=== PATIENT | male | born 1985 | race Caucasian/White ===

== ENCOUNTER 2019-08-07 12:08 | Emergency (ER) | payer MEDICAID, SELFPAY ==
[2019-08-07 12:09] VITALS: BP 131/78; PULSE 74; RESP 51; TEMP 36.6; O2SAT 100; BMI 20.2
[2019-08-07 13:09] VITALS: BP 121/78; PULSE 91; RESP 16; O2SAT 99
--- NOTE | 2019-08-07 13:45 | EKG12_ITS ---
Test Reason : CP Blood Pressure : / mmHG Vent. Rate : 061 BPM Atrial Rate : 061 BPM P-R Int : 122 ms QRS Dur : 080 ms QT Int : 388 ms P-R-T Axes : 062 067 053 degrees QTc Int : 390 ms Normal sinus rhythm Voltage criteria for left ventricular hypertrophy Septal OK, age undetermined, cannnot be excluded Abnormal ECG Confirmed by SUSAN LOPEZ, TERRELL ([id number]), rewrite editor JOESPH URBINA ([id number]) on 08/10/2019 8:33:26 AM Referred By: RISHABH/LELA Confirmed By:TERRELL DAVIS MD
[2019-08-07] MEDS: Ibuprofen 600 MG Tablet PO (13:55)
--- NOTE | 2019-08-07 14:05 | RAD_ITS ---
STUDY: X-RAY CHEST REASON FOR EXAM: Male, 33 years old. Chest pain TECHNIQUE: PA and lateral views of the chest. COMPARISON: None. FINDINGS: The lungs are clear and expanded. There is no demonstrated pleural abnormality. Normal size heart. Normal mediastinum and shane. Normal visualized pulmonary arteries. Normal visualized aortic arch and descending thoracic aorta. Normal visualized thoracic spine. Normal visualized ribs, clavicles, and shoulders. There is no demonstrated abnormality of the visualized soft tissue structures of the upper abdomen. RAD/Chest PA and Lateral IMPRESSION: Normal x-ray examination of the chest. Electronically Signed: Pool Leos MD at 14:20 EDT Tel , Service support ,
[2019-08-07 14:06] LABS: Absolute Neutrophil Count 8.3 X10^3/uL (2.0-7.7); Basophil# 0.03 X10^3/uL; Basophil% 0.3 % (0-1); Eosinophils% 0.9 % (0-5); Hematocrit 48.3 % (40-54); Hemoglobin 16.3 g/dL (13.0-16.5); Mean Corp Hgb Conc 33.7 g/dL (32-36); Mean Corpuscular Hgb 30.8 pg (27.0-32.0); Mean Corpuscular Volume 91.1 fL (80-94); Mean Platelet Vol. 9.4 fl (6.2-12.0); Monocyte# 0.59 X10^3/uL; Monocyte% 5.5 % (0-10); NRBC Flagged by Analyzer 0 % (0-5); Neutrophil # 8.25 X10^3/uL (2.7-7.7); Neutrophil % 77.6 % (47-70); Platelet Count 267 K/mm3 (150-450); RBC Distribution Width CV 12.3 % (11.6-14.6); RBC Distribution Width SD 40.7 fl (35.1-43.9); White Blood Count 10.6 K/mm3 (4.4-11.0)
[2019-08-07 14:23] LABS: Anion Gap 5 (5-15); BUN 10 mg/dL (7-18); BUN/Creat Ratio 10.8 RATIO (10-20); Chloride 104 mmol/L (98-107); Creatinine, Serum 0.93 mg/dL (0.70-1.30); EST Glomerular Filtration Rate 100 mL/min (>60); Est Glom Filt Rate - Afr Amer 121 mL/min (>60); Estimated Creatinine Clearance 106.08 ml/min; Glucose 95 mg/dL (74-106); Potassium 4.1 mmol/L (3.5-5.1); Sodium Level 139 mmol/L (136-145)
--- NOTE | 2019-08-07 14:37 | ED.DCSUM_ITS ---
History of Present Illness Chief Complaint: Chest Pain Informant: Patient Onset: Days Context: Gradual Onset Timing: Intermittent Current Severity: Mild Maximum Severity: Severe Narrative: Patient is a 33-year-old male with no known medical history presenting with multiple complaints including left jaw pain, left neck pain as well as chest pain. Patient states he has had intermittent jaw and neck pain for the past few months but is been worse over the past few days. He states that when he sleeps he grinds his teeth and he feels that his jaw pops a lot. He does have an appointment to see a dentist in 1 week. He also notes that the left side of his neck hurts especially when he is working. 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 Today patient had an episode of intermittent left-sided chest pain/tingling. He denies any associated shortness of breath, sweating or nausea. The patient states that he sometimes gets num bness in his hand over the left third through fifth fingers. Seems to be more so when he is sitting in an awkward position or raises up his arm. He currently does not have the symptom. His significant other convinced him to come into be evaluated further. He admits to smoking cigarettes. He denies any family history of coronary artery disease. He denies any history of hypertension, hyperlipidemia or diabetes. He denies any swelling of his legs, recent travel or history of DVT/PE. Past Medical History - Allergies and Home Meds Allergies/Adverse Reactions: Allergies SEASONAL Allergy (Uncoded 08/07/19 12:16) Other Primary Care Physician: Care Physician,No Primary [Primary Care Provider] - Surgical History: no surgical history Lives: Spouse/ Significant Other Smoking Status: Current every day smoker Alcohol: Heavy Review of Systems All systems negative except as indicated ENT: Reports: - - Left dental/jaw pain Cardiovascular: Reports: Chest pain Musculoskeletal: Reports: Arthralgias - Left shoulder, Neck pain Neurological: Reports: Parasthesia - Left third through fifth finger Physical Exam Vital Signs/Narrative: Vital Signs Temp Pulse Resp BP Pulse Ox 08/07/19 13:09 91 16 121/78 H 99 08/07/19 12:09 97.8 F 74 51 H 131/78 H 100 Inital Vital Signs reviewed: Yes General: Well nourished, Well developed, No Acute Distress Head: Normocephalic, Atraumatic Eyes: Perrl, EOMI ENT: Moist mucous membranes, No rhinorrhea, TM's clear, - - Poor dentition, marcelo blingual mucosa is soft, no tenderness to palpation, no swelling or abscess of the gums, abnormal movement of the left TMJ with opening and closing of the mouth Neck: Nontender, - - Left Paraspinal tenderness to palpation, no midline tenderness Cardiovascular: Regular rate, Regular rhythm, No murmurs Respiratory: No distress, CTA bilaterally, Chest nontender Abdomen: Soft, Nontender, Nondistended, Normal bowel sounds Back: Nontender, Normal Inspection Extremities: Nontender, No edema, - Skin: Normal color, No rash Neurological: Alert, Oriented x3, Cranial nerves II-XII grossly intact, Normal S trength, Normal Sensation Psychological: Normal affect, Normal Mood Diagnostic/Tx/Re-eval Chest X-Ray - ED: 2 View, Read by Radiologist, No Acute Disease Laboratory Results - last 24 hr 08/07/19 08/07/19 14:00 14:00 WBC 10.6 RBC 5.30 Hgb 16.3 Hct 48.3 MCV 91.1 MCH 30.8 MCHC 33.7 RDW Std Deviation 40.7 RDW Coeff of Jai 12.3 Plt Count 267 MPV 9.4 Immature Gran % (Auto) 0.700 Neut % (Auto) 77.6 H Lymph % (Auto) 15.0 L [place] % (Auto) 5.5 Eos % (Auto) 0.9 Baso % (Auto) 0.3 Absolute Neuts (auto) 8.3 H Absolute Lymphs (auto) 1.60 Nucleated RBC % 0 Sodium 139 Potassium 4.1 Chloride 104 Carbon Dioxide 30.0 Anion Gap 5 BUN 10 Creatinine 0.93 Estim Creat Clear Calc 106.08 Est GFR (MDRD) Af Amer 121 Est GFR (MDRD) Non-Af 100 BUN/Creatinine Ratio 10.8 Glucose 95 Calcium 9.0 Troponin I < 0.015 - Rhythm Strip Rhythm Strip: Sinus Rhythm Rate: 61 Ectopy: None - EKG Initial EKG Interpretation: Sinus Rhythm, - - EKG Normal intervals, early repolarization - Medical Decision Making Evaluated for multiple complaints including left jaw pain, left neck and shoulder pain, paresthesias of his left hand as well as intermittent chest pain. The jaw pain is been going on for quite some time however the chest discomfort is only been occurring for the past few days and has been intermittent. He appears nontoxic and in no acute distress. He is PE RC negative. EKG does not show any significant abnormality. Patient is low risk for ACS. His troponin is negative. I believe he is a good candidate for outpatient follow-up. I believe his symptoms are all muscle skeletal. Patient does have likely TMJ dysfunction on the left as well as muscle spasms of the neck on the left. Patient likely has paresthesias in his ulnar distribution secondary to a radiculopathy versus peripheral nerve compression. He is encouraged to take muscle relaxant and anti-inflammatory for symptomatic treatment. He already has follow-up with dentist next week. He does not have any signs of a dental infection, Uday's angina or abscess. Finally patient states that he does have insurance that he is encouraged to call his insurance provider to find an in network PCP for follow-up. Patient is counseled on signs and symptoms requiring return to the emergency room. Patient verbalizes agreement and understand this plan. Patient discharged home in stable and improved condition. ED Disposition - Plan for ED Patient: Disposition: Home or Assisted Living Diagnosis: TMJ (temporomandibular joint disorder), Neck muscle spasm, Chest pain Instructions: CHEST PAIN, NonCardiac, NECK SPASM, No Trauma, Tmj Syndrome Prescriptions: cycloBENZAPRine HCl [Flexeril] 10 mg PO TID PRN PRN #15 tab PRN Reason: Spasms Prescription Printed Ibuprofen 600 mg PO 4X/DAY PRN #20 tab PRN Reason: Pain Score 1-10/10 Prescription Printed Referrals: Care Physician,No Primary [Primary Care Provider] - Additional Instructions: Follow-up with your dentist for further evaluation of your jaw pain/possible TMJ. Return to the emergency room if you have worsening chest pain. Follow-up with the primary care doctor. Make sure you rest to allow your's muscles to heal.
[2019-08-07 14:54] VITALS: BP 121/76; PULSE 71; RESP 14; O2SAT 99
== END 2019-08-07 15:02 | disposition home or self-care (01) ==
PROVIDERS: Emergency Provider Emergency Medicine
DX: M26.609 Unspecified temporomandibular joint disorder, unspecified side (principal); M62.838 Other muscle spasm; R07.9 Chest pain, unspecified; M54.2 Cervicalgia; R68.84 Jaw pain; R20.2 Paresthesia of skin; R20.0 Anesthesia of skin; F17.210 Nicotine dependence, cigarettes, uncomplicated
CPT/HCPCS: 71046; 80048; 84484; 85025; 93005; 99283

== ENCOUNTER 2021-05-31 15:28 | Emergency (ER) | payer MEDICAID, SELFPAY ==
[2021-05-31 15:29] VITALS: BP 150/101; PULSE 80; RESP 14; TEMP 36.5; O2SAT 99; BMI 20.9
--- NOTE | 2021-05-31 15:42 | EDS_ITS ---
HPI History of Present Illness Chief Complaint: Dental Informant: patient Narrative Narrative: 35-year-old male states that he has a crown on his right upper central incisor. He states that a couple days ago it began to hurt. At times the pain intensifies significantly. He states that he does not currently have a dentist but is looking for 1. No fevers. [facility] Medical History GERD (gastroesophageal reflux disease) Home Medications hydrocodone-acetaminophen 1 tab PO Q6H PRN PRN 3 Days #12 tablet 05/31/21 [Rx Last Taken Unknown] omeprazole 20 mg PO DAILY 05/31/21 [History Last Taken Unknown] penicillin V potassium 500 mg PO 4X/DAY #40 tab 05/31/21 [Rx Last Taken Unknown] Allergy/AdvReac Type Severity Reaction Status Date / Time SEASONAL Allergy Other Uncoded 05/31/21 15:31 Social History (Updated 05/31/21 @ 15:[address] David Jean DO) Smoking Status: Current every day smoker tobacco type: cigarettes substance use type: does not use ROS ROS ED Constitutional Constitutional ED: Denies chills or weight loss Eyes Eyes: Denies change in vision or diplopia ENT ENT ED: Reports other Details: See history of present illness ; Denies ear pain, rhinorrhea or sore throat Cardiovascular Cardiovascular: Denies chest pain, orthopnea, palpitations or racing heartbeat Respiratory/Chest Respiratory/Chest: Denies cough, dyspnea or orthopnea Gastrointestinal Gastrointestinal: Denies abdominal pain, diarrhea, nausea or vomiting Genitourinary Genitourinary ED: Denies dysuria, hematuria or urinary frequency Musculoskeletal Musculoskeletal: Denies arthralgias or myalgias Integumentary Denies abscess or rash Neurologic Neurologic: Denies headache(s) or weakness Psychiatric Psychiatric: Denies anxiety, depression, suicidal ideation or suicidal thoughts Endocrine Endocrinology: Denies polydipsia, polyphagia or polyuria Allergic/Immunologic Allergic/Immunologic ED: Denies mouth swelling, tongue swelling or urticaria EXAM Physical Exam Const Vital Signs: 05/31/21 15:29 Temperature 97.7 F L Temperature Source Temporal Pulse Rate 80 Respiratory Rate 14 Blood Pressure 150/101 H Blood Pressure Mean 117 Pulse Ox 99 Oxygen Delivery Method Room Air Positive well nourished and well developed General Appearance ED: well developed HEENT Reports normocephalic, head/scalp atraumatic and moist mucous membranes HEENT Narrative: Tender to palpation on the right upper central incisor. There is no focal gum swelling. Tooth does not appear loose. No overlying facial swelling or erythema. Eyes PERRL and EOMs intact bilaterally Neck no lymphadenopathy, supple and no JVD Resp normal respiratory effort and clear to auscultation bilaterally Cardio regular rate, regular rhythm and no murmurs GI normal to inspection, nondistended, normoactive bowel sounds and non-tender Palpation: soft Back/Spine no CVA tenderness and normal ROM Extremity normal to inspection General Extremety ED: Negative for edema General Extremity: Negative for edema Neuro oriented x3 and CN's II-XII intact bilaterally Sensorium / Orientation: alert Motor Exam: strength 5/5 throughout Psych mental status grossly normal Mood & Affect: Negative for depressed or tearful Skin no rashes or lesions noted and no wounds MDM MDM MDM Narrative Medical decision making narrative: Patient was started on penicillin I can write for a few [place]. Recommend anti-inflammatories as well. Follow-up with dentistry as soon as possible Discharge Plan Triage Chief Complaint: Dental ED Provider: David Jean Dx/Rx/DC Orders Clinical Impression: Odontalgia Instructions: ED Dental Pain Prescriptions: New hydrocodone-acetaminophen [hydrocodone-acetaminophen] 1 TABLET tablet 1 tab PO Q6H PRN PRN (Reason: Pain) 3 Days Qty: 12 RF: 0 penicillin V potassium 500 MG tablet 500 mg PO 4X/DAY Qty: 40 RF: 0 No Action omeprazole 20 mg Capsule,Delayed Release(Dr/Ec) 20 mg PO DAILY RF: 0 Primary Care Provider: Care Physician,No Primary Referrals: Care Physician,No Primary [Primary Care Provider] - Activity Restrictions/Additional Instructions: Follow-up with dentistry as soon as possible Disposition Disposition: Home, Self Care
[2021-05-31 16:18] VITALS: RESP 15
== END 2021-05-31 16:21 | disposition home or self-care (01) ==
PROVIDERS: Emergency Provider Emergency Medicine
DX: K08.89 Other specified disorders of teeth and supporting structures (principal); K21.9 Gastro-esophageal reflux disease without esophagitis; F17.210 Nicotine dependence, cigarettes, uncomplicated; Z79.899 Other long term (current) drug therapy
CPT/HCPCS: 99282

== ENCOUNTER 2022-08-05 08:38 | Emergency (ER) | payer MEDICAID, SELFPAY ==
[2022-08-05 08:39] VITALS: BP 115/72; PULSE 87; RESP 18; TEMP 36.6; O2SAT 100; BMI 21.7
[2022-08-05 08:49] VITALS: BP 115/72; PULSE 87; RESP 18; TEMP 36.6; O2SAT 100
[2022-08-05 08:50] VITALS: O2SAT 100
--- NOTE | 2022-08-05 09:11 | EX.ED.DYSGE1 ---
HPI History of Present Illness Chief Complaint: Cold Sx Detail of Chief Complaint: Cough and sinus congestion for 3 weeks Informant: patient Narrative Narrative: Patient presents with cough and sinus congestion for the last 3 weeks. Patient was seen in urgent care about a week ago and had a negative COVID test. Patient coughing up some phlegm at times it is mostly clear. He complains of a lot of sinus pressure. He denies fevers. Patient apparently has a child at home that recently had bronchitis. Patient at times feels lightheaded if he bends over and stands up quickly. He has been eating and drinking normally. Prior similar symptoms: No PFSH PFS Medical History GERD (gastroesophageal reflux disease) Home Medications hydrocodone-acetaminophen 5-325mg 5mg-325mg 1 tab PO Q6H PRN PRN Pain 3 days #12 TABLETS 05/31/21 [Rx Last Taken Unknown] omeprazole 20 mg capsule,delayed release 20 mg PO DAILY 05/31/21 [History Last Taken Unknown] penicillin V potassium 500 mg tablet 500 mg PO 4X/DAY #40 tabs 05/31/21 [Rx Last Taken Unknown] amoxicillin 875 mg-potassium clavulanate 125 mg tablet 875 mg PO Q12H #20 TABLETS 08/05/22 [Rx Last Taken Unknown] Allergy/AdvReac Type Severity Reaction Status Date / Time Seasonal Allergies: Uncoded Allergy NEEDS Verified 08/05/22 08:41 FOLLOW-UP Social History (Updated 05/31/21 @ 15:[address] David Jean DO) Smoking Status: Current every day smoker tobacco type: cigarettes substance use type: does not use ROS ROS ED Constitutional Constitutional ED: Reports systems reviewed and no addt'l complaints, except as documented; Denies body ache(s), change in weight or chills Eyes Eyes: Denies acute decrease in peripheral vision, change in vision, double vision or loss of vision ENT ENT ED: Reports none and other Details: Sinus pressure ; Denies ear pain, lip swelling, loss taste/smell, neck pain, otalgia or sore throat Cardiovascular Cardiovascular: Reports none; Denies abdominal pain, chest pain with activity, leg edema, lightheadedness, palpitations, rapid heart rate or syncope Respiratory/Chest Respiratory/Chest: Reports none and cough; Denies change in mental status, dry cough, dyspnea, hemoptysis, shortness of breath at rest or shortness of breath with exertion Gastrointestinal Gastrointestinal: Reports none; Denies abdominal pain, change in stool character, diarrhea, hematemesis, hematochezia, melena, rectal bleeding or vomiting Genitourinary Genitourinary ED: Reports none; Denies abdominal discomfort, anuria, dysuria, genital pain or polyuria Musculoskeletal Musculoskeletal: Reports none; Denies arthralgias, back pain, difficulty walking, extremity pain, muscle weakness or myalgias Integumentary Reports none; Denies abscess or rash Neurologic Neurologic: Reports none; Denies abnormal gait, confusion, focal weakness, frequent falls, headache(s), loss of vision, numbness, paresthesias, radicular pain, vertigo or weakness Psychiatric Psychiatric: Reports systems reviewed and no addt'l complaints, except as documented and none; Denies behavioral changes, confusion, difficulty concentrating, hallucinations, suicidal ideation, tactile hallucinations or visual hallucinations Endocrine Endocrinology: Denies none, cold intolerance, excessive sweating, fatigue or heat intolerance Hematologic/Lymphatic Hematologic/Lymphatic: Reports none; Denies anemia, easy bleeding or easy bruising Allergic/Immunologic Allergic/Immunologic ED: Denies as per HPI, none, lip swelling, mouth swelling, throat swelling, tongue swelling or hives EXAM Physical Exam Const Vital Signs: 08/05/22 08:39 08/05/22 08:49 08/05/22 08:50 Temperature 97.9 F 97.9 F Temperature Source Temporal Temporal Pulse Rate 87 87 Respiratory Rate 18 18 Respiratory Effort Normal Non-Labored Respiratory Depth Respiratory Pattern Normal Blood Pressure 115/72 115/72 Blood Pressure Mean 86 86 Pulse Ox 100 100 Oxygen Delivery Method Room Air 08/05/22 08:50 Temperature Temperature Source Pulse Rate Respiratory Rate Respiratory Effort Normal Respiratory Depth Normal Respiratory Pattern Normal Blood Pressure Blood Pressure Mean Pulse Ox Oxygen Delivery Method Room Air Positive well nourished and well developed General Appearance ED: well developed and NAD HEENT Reports TM's clear and moist mucous membranes HEENT Narrative: Minimal tenderness over frontal sinuses. No nasal purulent drainage noted. No significant edema of the turbinates noted. normocephalic and atraumatic; Negative for trauma or tenderness Tympanic Membrane ED: Yes TM's clear Eyes PERRL and EOMs intact bilaterally General Eye ED: Negative for pale conjunctiva or scleral icterus Neck no lymphadenopathy, supple and no JVD General: Negative for tenderness Chest Wall inspection of chest normal and palpation of chest normal Chest: Negative for tenderness Resp normal respiratory effort and clear to auscultation bilaterally Effort and Inspection: Negative for respiratory distress or pain with movement Auscultation: Negative for rhonchi, wheezes or diminished lung sounds Cardio regular rate, regular rhythm, S1 normal heart sound, S2 normal heart sound and no murmurs Peripheral Pulses: pulses 2+ throughout GI normal to inspection, nondistended, normoactive bowel sounds, soft to palpation, non-tender, non-distended and no masses Back/Spine no CVA tenderness and no thoracic nor lumbar tenderness Extremity normal to inspection General Extremety ED: Negative for edema General Extremity: Negative for edema Neuro oriented x3, CN's II-XII intact bilaterally, no sensory deficits noted and gait normal Sensorium / Orientation: awake, alert, oriented to person, oriented to place and oriented to time Motor Exam: strength 5/5 throughout and strength abnormal Psych mental status grossly normal Skin no rashes or lesions noted and no wounds MDM MDM MDM Narrative Medical decision making narrative: With URI symptoms for 3 weeks. At this point we will start him on Augmentin for 10 days. Advised to follow-up with primary care physician in 5 to 7 days. I do not feel any imaging is indicated. Discharge Plan Triage Chief Complaint: Cold Sx ED Provider: Archana Ramirez Dx/Rx/DC Orders Clinical Impression: Sinusitis, Bronchitis Instructions: ED Upper Resp Infec Abx Tx, ED Sinusitis (Antibiotic Treatment) Prescriptions: New amoxicillin-pot clavulanate [amoxicillin-pot clavulanate] 875 MG tablet 875 mg PO Q12H Qty: 20 0RF No Action omeprazole 20 mg Capsule,Delayed Release(Dr/Ec) 20 mg PO DAILY hydrocodone-acetaminophen [hydrocodone-acetaminophen] 1 TABLET tablet 1 tab PO Q6H PRN PRN (Reason: Pain) 3 Days Qty: 12 0RF penicillin V potassium 500 MG tablet 500 mg PO 4X/DAY Qty: 40 0RF Primary Care Provider: Care Physician,No Primary Referrals: Kalpesh Cortze MD [Non-Staff] - 5-7 Days Care Physician,No Primary [Primary Care Provider] - Disposition Disposition: Home, Self Care
== END 2022-08-05 09:27 | disposition home or self-care (01) ==
PROVIDERS: Emergency Provider Emergency Medicine; Visit Provider Emergency Medicine
DX: J32.1 Chronic frontal sinusitis (principal); J40 Bronchitis, not specified as acute or chronic; F17.210 Nicotine dependence, cigarettes, uncomplicated
CPT/HCPCS: 99283